=== PATIENT | female | born 1970 | race African-American/Black ===

== ENCOUNTER → 2018-04-24 | Outpatient (CLI) | payer MEDICAID, OTHER ==
--- NOTE | 2018-04-24 16:08 | Diagnostic Imaging Report ---
Indication: Cough Technique: One view of the chest Comparison: none Findings: The heart is enlarged. Lungs and left pleural space are clear. There is slight blunting of the right costophrenic sulcus. Impression: Cardiomegaly Suspect small right pleural effusion
== END | disposition home or self-care (01) ==
LOC: RAD 14:52
DX: D72.829 Elevated white blood cell count, unspecified (principal); I51.7 Cardiomegaly
CPT/HCPCS: 71045